=== PATIENT | female | born 1950 | race Caucasian/White ===

== ENCOUNTER 2020-06-24 09:41 | Outpatient (CLI) | payer MEDICARE | END 2020-06-24 09:42 | disposition home or self-care (01) | LOC: NAV RAD 09:41 | PROVIDERS: ATTEND Family Medicine | DX: M79.641 Pain in right hand (principal); M18.0 Bilateral primary osteoarthritis of first carpometacarpal joints ==

== ENCOUNTER 2021-01-12 10:23 | Outpatient (CLI) | payer MEDICARE | END 2021-01-12 10:24 | disposition home or self-care (01) | LOC: NAV RAD 10:23 | PROVIDERS: ATTEND Family Medicine | DX: M79.672 Pain in left foot (principal) ==

== ENCOUNTER 2023-11-08 11:20 | Outpatient (CLI) | payer MEDICARE | END 2023-11-08 11:21 | disposition home or self-care (01) | LOC: NAV RAD 11:20 | PROVIDERS: ATTEND Nurse Practitioner Family | DX: M25.561 Pain in right knee (principal); M79.641 Pain in right hand; W19.XXXA Unspecified fall, initial encounter; M18.11 Unilateral primary osteoarthritis of first carpometacarpal joint, right hand ==